=== PATIENT | female | born 1965 | race Caucasian/White ===

== ENCOUNTER → 2019-12-24 12:44 | Outpatient (BNVA) | payer MEDICAID, SELFPAY | PROVIDERS: Family Provider Physician Assistant Medical; PCP Family Medicine; Referring Provider Nurse Practitioner Family; Visit Provider Anesthesiology Pain Medicine | DX: M54.42 Lumbago with sciatica, left side (principal); M54.41 Lumbago with sciatica, right side; M54.9 Dorsalgia, unspecified; F17.210 Nicotine dependence, cigarettes, uncomplicated; Z79.891 Long term (current) use of opiate analgesic | CPT/HCPCS: 99204 ==

== ENCOUNTER → 2021-05-24 12:19 | Outpatient (BNVA) | payer MEDICAID, SELFPAY | PROVIDERS: Family Provider Physician Assistant Medical; PCP Family Medicine; Visit Provider Nurse Practitioner Family | DX: N39.3 Stress incontinence (female) (male) (principal); N39.0 Urinary tract infection, site not specified | CPT/HCPCS: 81003; 87086 ==

== ENCOUNTER 2021-11-03 13:26 | Outpatient (CLI) | payer MEDICAID, SELFPAY ==
--- NOTE | 2021-11-03 13:39 | MM_ITS ---
WS: [id number] BILATERAL 3D TOMOSYNTHESIS DIGITAL SCREENING MAMMOGRAM WITH CAD CLINICAL INFORMATION: SCREENING HISTORY: Screening mammogram. LEFT breast trauma with lump COMPARISON: August 16, 2020 TECHNIQUE: Bilateral CC and MLO. FINDINGS: The breast are composed of heterogeneously dense tissue, which can limit the detection of small under lying mass lesions. Punctate and lucent centered calcifications. Increasing asymmetric density upper outer RIGHT breast measuring 16 mm. Recommend further evaluation with ultrasound. MM/[place] [id number] IMPRESSION: BI-RADS: 0-Incomplete: Need additional imaging evaluation FOLLOW UP: Need Additional Imaging RECOMMEND ULTRASOUND UPPER-OUTER QUADRANT RIGHT BREAST
== END 2021-11-03 13:27 | disposition home or self-care (01) ==
PROVIDERS: PCP Family Medicine; Visit Provider Family Medicine
DX: Z12.31 Encounter for screening mammogram for malignant neoplasm of breast (principal)
CPT/HCPCS: 77063; 77067

== ENCOUNTER 2022-01-03 11:06 | Outpatient (CLI) | payer MEDICAID, SELFPAY ==
--- NOTE | 2022-01-03 11:16 | US_ITS ---
WS: [id number] ULTRASOUND BREAST RIGHT TECHNIQUE: Ultrasound right breast focused area of concern. CLINICAL INFORMATION: ABNORMAL MAMMO COMPARISON: Mammography 11/03/2021 and 08/16/2020 FINDINGS: Ultrasound upper outer quadrant RIGHT breast. Very dense underlying parenchymal tissue at the 10:00 p osition. This corresponds to the mammographic findings. Tiny incidental simple cyst at the 11:00 posi tion 2 cm the nipple measuring 2 mm. No suspicious cystic or solid lesions to target for biopsy. Roby mmend return to annual screening mammography. US/US breast RT limited* [id number] IMPRESSION: BI-RADS 2 benign FOLLOW UP: Recommend return to annual screening mammography.
== END 2022-01-03 11:07 | disposition home or self-care (01) ==
LOC: RAD 11:07
PROVIDERS: PCP Family Medicine; Visit Provider Family Medicine
DX: R92.8 Other abnormal and inconclusive findings on diagnostic imaging of breast (principal)
CPT/HCPCS: 76642

== ENCOUNTER → 2022-03-27 08:27 | Outpatient (BNVA) | payer MEDICAID, SELFPAY | PROVIDERS: PCP Family Medicine; Visit Provider Internal Medicine | DX: L40.9 Psoriasis, unspecified (principal); M25.50 Pain in unspecified joint; I10 Essential (primary) hypertension; Z11.59 Encounter for screening for other viral diseases; Z11.1 Encounter for screening for respiratory tuberculosis; R53.83 Other fatigue | CPT/HCPCS: 99204 ==

== ENCOUNTER 2022-04-05 12:52 | Outpatient (CLI) | payer MEDICAID, SELFPAY ==
--- NOTE | 2022-04-05 13:05 | XR_ITS ---
WS: [id number] EXAMINATION: XR knee LT 1-2V 99815 REASON FOR EXAM: I10 - Essential (primary) hypertension COMPARISON: None available. ORDER DATE: 04/05/2022 1:09 PM FINDINGS: There are calcifications in the medial and lateral menisci with medial and patellofemoral compartment narrowing. There is no sign of any acute fracture or dislocation. A small joint effusion cannot be e xcluded but there is no evidence of any large effusion XR/XR knee LT 1-2V 28988 IMPRESSION: MEDIAL AND PATELLOFEMORAL COMPARTMENT NARROWING WITH OSTEOARTHRITIC CHANGES. SL IGHT MENISCAL CALCIFICATION MAY BE CHRONIC DEGENERATIVE CHANGE OR CHONDROCALCIN OSIS.
--- NOTE | 2022-04-05 13:05 | XR_ITS ---
WS: [id number] EXAMINATION: XR knee RT 1-2V [id number] REASON FOR EXAM: I10 - Essential (primary) hypertension COMPARISON: None available. ORDER DATE: 04/05/2022 1:09 PM FINDINGS: There is no sign of any acute osseous or articular abnormality. There is minor narrowing of the later al compartment of the knee joint consistent with osteoarthritis. There are no specific soft tissue ab normalities. XR/XR knee RT 1-2V 42845 IMPRESSION: Minor osteoarthritis.
[2022-04-05 13:35] LABS: Basophils # 0.1 10^3/uL (0.0-0.1); Basophils % 1.6 %; Eosinophils # 0.3 10^3/uL (0.0-0.8); Eosinophils % 4.1 %; Hematocrit 42.8 % (37.0-47.0); Hemoglobin 14.3 g/dL (11.5-15.3); Lymphocytes # 2.5 10^3/uL (0.8-4.8); Lymphocytes % 32.6 %; Mean Corpuscular HGB Conc 33.4 g/dL (30.0-36.0); Mean Corpuscular Hemoglobin 31.1 pg (28.0-34.0); Mean Platelet Volume 9.4 fL (7.4-10.4); Monocytes # 0.8 10^3/uL (0.2-0.9); Monocytes % 10.1 %; Neutrophils # 3.98 10^3/uL (1.8-7.7); Neutrophils % 51.3 %; Nucleated Red Blood Cells % 0 %; Platelet Count 369 10^3/cmm (130-400); Red Cell Distribution Width 13.8 % (12.1-15.1); White Blood Count 7.7 10^3/uL (4.0-10.0)
[2022-04-05 13:48] LABS: Alanine Aminotransferase 12 U/L (0-33); Albumin Level 4.4 g/dL (3.5-5.2); Alkaline Phosphatase 143 U/L (35-105); Anion Gap 16.4 (5-19); Aspartate Amino Transferase 18 U/L (0-32); Blood Urea Nitrogen 12 mg/dL (6-20); Calcium 9.3 mg/dL (8.5-10.5); Carbon Dioxide 23 mmol/L (22-29); Chloride 98 mmol/L (98-107); Globulin 2.8 g/dL (1.3-4.6); Glomerular Filtration Rate 103.8 mL/min (90-130); Glucose 90 mg/dL (65-115); Osmolality Calculated 275 mOsm/kg (285-295); Potassium 4.4 mmol/L (3.5-5.1); Sodium 133 mmol/L (136-145); Total Bilirubin 0.4 mg/dL (0.15-1.2); Total Protein 7.2 g/dL (6.6-8.7)
[2022-04-05 14:15] LABS: Hepatitis B Core AB, Total Non-Reactive (Nonreactive); Hepatitis B Surface Antigen Non-Reactive (Nonreactive); Hepatitis C Virus Antibody Non-Reactive (Nonreactive)
[2022-04-07 11:55] LABS: Quantiferon Mitogen >10.00 IU/mL; Quantiferon Nil 0.02 IU/mL; Quantiferon Plus TB1 0.02 IU/mL; Quantiferon Plus TB2 0.02 IU/mL; Quantiferon TB Gold NEGATIVE (NEGATIVE)
== END 2022-04-05 12:53 | disposition home or self-care (01) ==
LOC: LAB 12:54
PROVIDERS: PCP Family Medicine; Visit Provider Internal Medicine
DX: I10 Essential (primary) hypertension (principal); M25.562 Pain in left knee; M25.561 Pain in right knee; Z79.899 Other long term (current) drug therapy
CPT/HCPCS: 36415; 73560; 80053; 85025; 86480; 86704; 86803; 87340

== ENCOUNTER → 2022-06-06 14:53 | Outpatient (BNVA) | payer MEDICAID, SELFPAY | PROVIDERS: PCP Family Medicine; Visit Provider Internal Medicine | DX: L40.9 Psoriasis, unspecified (principal); M25.50 Pain in unspecified joint; I10 Essential (primary) hypertension; F17.210 Nicotine dependence, cigarettes, uncomplicated; Z85.828 Personal history of other malignant neoplasm of skin | CPT/HCPCS: 99213 ==

== ENCOUNTER → 2022-08-29 13:29 | Outpatient (BNVA) | payer MEDICAID, SELFPAY | PROVIDERS: PCP Family Medicine; Visit Provider Internal Medicine | DX: L40.9 Psoriasis, unspecified (principal); M25.50 Pain in unspecified joint; I10 Essential (primary) hypertension | CPT/HCPCS: 99214 ==

== ENCOUNTER 2022-09-04 10:49 | Outpatient (CLI) | payer MEDICAID, SELFPAY ==
[2022-09-04 11:14] LABS: Basophils # 0.1 10^3/uL (0.0-0.1); Basophils % 1.3 %; Eosinophils # 0.4 10^3/uL (0.0-0.8); Eosinophils % 4.1 %; Hematocrit 42.7 % (37.0-47.0); Lymphocytes # 2.6 10^3/uL (0.8-4.8); Lymphocytes % 26.3 %; Mean Corpuscular HGB Conc 32.8 g/dL (30.0-36.0); Mean Corpuscular Hemoglobin 30.9 pg (28.0-34.0); Mean Corpuscular Volume 94.3 fl (81-99); Mean Platelet Volume 9.3 fL (7.4-10.4); Monocytes # 0.7 10^3/uL (0.2-0.9); Monocytes % 7.5 %; Neutrophils # 5.82 10^3/uL (1.8-7.7); Neutrophils % 60.2 %; Nucleated Red Blood Cells % 0 %; Platelet Count 390 10^3/cmm (130-400); Red Blood Count 4.53 10^6/uL (4.1-5.3); White Blood Count 9.7 10^3/uL (4.0-10.0)
[2022-09-04 11:21] LABS: Erythrocyte Sedimentation Rate 20 mm/hr (0-15)
[2022-09-04 11:29] LABS: Alanine Aminotransferase 16 U/L (0-33); Albumin Level 4.1 g/dL (3.5-5.2); Alkaline Phosphatase 131 U/L (35-105); Anion Gap 14.2 (5-19); Aspartate Amino Transferase 20 U/L (0-32); Blood Urea Nitrogen 9 mg/dL (6-20); C Reactive Protein 5.5 mg/L (0.0-4.9); Calcium 8.9 mg/dL (8.5-10.5); Carbon Dioxide 28 mmol/L (22-29); Chloride 98 mmol/L (98-107); Globulin 2.7 g/dL (1.3-4.6); Glomerular Filtration Rate 86.9 mL/min (90-130); Glucose 88 mg/dL (65-115); Osmolality Calculated 280 mOsm/kg (285-295); Potassium 4.2 mmol/L (3.5-5.1); Sodium 136 mmol/L (136-145); Total Bilirubin 0.3 mg/dL (0.15-1.2); Total Protein 6.8 g/dL (6.6-8.7)
== END 2022-09-04 10:50 | disposition home or self-care (01) ==
PROVIDERS: PCP Family Medicine; Visit Provider Internal Medicine
DX: L40.9 Psoriasis, unspecified (principal)
CPT/HCPCS: 36415; 80053; 85025; 85651; 86140

== ENCOUNTER → 2022-09-05 12:58 | Outpatient (BNVA) | payer MEDICAID, SELFPAY | PROVIDERS: PCP Family Medicine; Visit Provider Internal Medicine | DX: Z71.89 Other specified counseling; C44.729 Squamous cell carcinoma of skin of left lower limb, including hip; L30.9 Dermatitis, unspecified; R23.4 Changes in skin texture; L57.8 Other skin changes due to chronic exposure to nonionizing radiation; L81.4 Other melanin hyperpigmentation; L85.3 Xerosis cutis; D22.5 Melanocytic nevi of trunk; L40.0 Psoriasis vulgaris; L56.8 Other specified acute skin changes due to ultraviolet radiation; H16.229 Keratoconjunctivitis sicca, not specified as Sjogren's, unspecified eye; L59.0 Erythema ab igne [dermatitis ab igne]; M25.50 Pain in unspecified joint | CPT/HCPCS: 11103; 11104; 20605; 99213; 99214; J1030 ==

== ENCOUNTER → 2022-10-02 07:55 | Outpatient (BNVA) | payer MEDICAID, SELFPAY | PROVIDERS: PCP Family Medicine; Visit Provider Dermatology | DX: C44.729 Squamous cell carcinoma of skin of left lower limb, including hip (principal) | CPT/HCPCS: 13121; 17313; 17314 ==

== ENCOUNTER → 2022-10-17 10:44 | Outpatient (BNVA) | payer MEDICAID, SELFPAY | PROVIDERS: PCP Family Medicine; Visit Provider Dermatology | DX: L57.0 Actinic keratosis (principal); L57.8 Other skin changes due to chronic exposure to nonionizing radiation; L40.0 Psoriasis vulgaris; L40.59 Other psoriatic arthropathy | CPT/HCPCS: 17004; 99214 ==

== ENCOUNTER → 2022-12-13 09:17 | Outpatient (BNVA) | payer MEDICAID, SELFPAY | PROVIDERS: PCP Family Medicine; Visit Provider Dermatology | DX: L57.0 Actinic keratosis (principal) | CPT/HCPCS: 96567 ==

== ENCOUNTER 2022-12-28 12:28 | Outpatient (CLI) | payer MEDICAID, SELFPAY ==
--- NOTE | 2022-12-28 12:34 | USCV_ITS ---
No Emma Ann Age: 57 Gender: F : 1965 Exam Date: 12/28/2022 12:50 Ordering Phys: Dani Garcia XX Technologist: Michael Rubio Exam Location: [facility] [place] Indication: sob BP: 166 / 96 HR: 68 Rhythm: Sinus Technical Quality: Adequate MEASUREMENTS (Male / Female) Normal Values 2D ECHO LVOT Diameter 2.1 cm LV Ejection Fraction MOD 2C 59.8 % LV Ejection Fraction 2C AL 60.7 % LA Diameter 3.2 cm LA Width 3.1 cm LA Height 4.0 cm RA Width 3.1 cm RA Height 3.5 cm Aorta at Sinotubular Diameter 2.1 cm IVC Diameter 1.3 cm M-MODE Aortic Annulus Diameter 2.3 cm LA Ao Ratio MM 1.3 MV E Point Septal Separation 0.6 cm DOPPLER AV Peak Velocity 153.3 cm/s LVOT Peak Velocity 96.0 cm/s AV Area Cont Eq vti 2.2 cm squared AV Area Cont Eq pk 2.1 cm squared MV Peak Velocity 105.0 cm/s MV Area PHT 3.9 cm squared Mitral E to A Ratio 1.3 MV E' Velocity 56.0 cm/s Mitral E to MV E' Ratio 8.9 Mitral E to LV E' Lateral Ratio 7.2 Mitral E to LV E' Septal Ratio 11.8 TR Peak Velocity 255.2 cm/s TR Peak Gradient 26.1 mmHg TR Mean Velocity 207.5 cm/s TR Mean Gradient 18.1 mmHg TR Velocity Time Integral 68.6 cm Right Atrial Pressure 3.0 mmHg Pulmonary Artery Systolic Pressu 29.1 mmHg PV Peak Velocity 138.0 cm/s RV Acceleration Time 0.1 s RV Ejection Time 0.2 s RV AcT/ET 0.5 FINDINGS Left Ventricle Left ventricle is normal in size. LV systolic function is normal with EF 55 to 60%. No regional wall motion abnormalities are seen. Right Ventricle Normal in size and function Right Atrium Normal in size Left Atrium Normal in size Mitral Valve Structurally normal mitral valve. Trace mitral regurgitation Aortic Valve Structurally normal aortic valve. No significant stenosis or regurgitation is seen. Tricuspid Valve Mild tricuspid regurgitation. Pulmonary artery systolic pressure is normal. Pulmonic Valve Not well visualized Pericardium Normal Aorta Normal in size IVC Appears to be normal CONCLUSIONS LV systolic function is normal with EF 55 to 60%. Trace mitral regurgitation Mild tricuspid regurgitation. No comparison studies are available. Ray Ramirez MD (Electronically Signed) Final Date: 14 January 2023 12:42 S
== END 2022-12-28 12:29 | disposition home or self-care (01) ==
LOC: RAD 12:29
PROVIDERS: PCP Family Medicine; Visit Provider Family Medicine
DX: I08.1 Rheumatic disorders of both mitral and tricuspid valves (principal); I50.9 Heart failure, unspecified
CPT/HCPCS: 93306

== ENCOUNTER → 2023-01-07 13:40 | Outpatient (BNVA) | payer MEDICAID, SELFPAY | PROVIDERS: PCP Family Medicine; Visit Provider Internal Medicine | DX: L40.9 Psoriasis, unspecified (principal); M25.50 Pain in unspecified joint | CPT/HCPCS: 99213 ==

== ENCOUNTER 2023-01-09 13:16 | Outpatient (CLI) | payer MEDICAID, SELFPAY ==
--- NOTE | 2023-01-09 13:23 | MM_ITS ---
WS: [id number] BILATERAL 3D TOMOSYNTHESIS DIGITAL SCREENING MAMMOGRAPHY WITH CAD CLINICAL INFORMATION: SCREENING HISTORY: Screening mammogram. No current complaints. COMPARISON: 11/03/2021 TECHNIQUE: Bilateral CC and MLO views. FINDINGS: The breasts are composed of heterogeneous fibroglandular density tissue, which can limit the detectio n of small underlying mass lesions. No suspicious mass, asymmetry, calcifications, or architectural d istortion. No evidence of malignancy. Punctate and lucent centered calcifications or dystrophic calci fications LEFT breast are stable. Stable dense breast tissue upper outer RIGHT breast. IMPRESSION: MM/[place] [id number] BI-RADS: 2-Benign FOLLOW UP: 1 Year Follow-up Recommend return to annual screening mammography.
== END 2023-01-09 13:17 | disposition home or self-care (01) ==
LOC: MOBLMAM 13:22
PROVIDERS: PCP Family Medicine; Visit Provider Family Medicine
DX: Z12.31 Encounter for screening mammogram for malignant neoplasm of breast (principal)
CPT/HCPCS: 77063; 77067

== ENCOUNTER → 2023-05-08 09:30 | Outpatient (BNVA) | payer MEDICAID, SELFPAY | PROVIDERS: PCP Family Medicine; Visit Provider Internal Medicine | DX: L40.9 Psoriasis, unspecified (principal); M25.50 Pain in unspecified joint | CPT/HCPCS: 99214 ==

== ENCOUNTER 2024-02-27 11:19 | Outpatient (CLI) | payer MEDICAID, SELFPAY ==
--- NOTE | 2024-02-27 11:20 | MM_ITS ---
WS: [id number] Bilateral screening 3D tomosynthesis digital mammogram, 02/27/2024 11:26 AM Clinical Data: SCREENING Comparison: 01/09/2023, 11/03/2021, 08/16/2020, 09/02/2015, 02/28/2011. Findings: No spiculated masses or clustered calcifications are seen. There are no secondary signs of carcinoma . MM/MM scr BI tomosynthesis [id number] Impression: Negative bilateral mammogram unchanged. Recommend annual screening mammograms. BIRADS: 1 - Negative FOLLOW UP: 1 Year Follow-up DENSITY: The breasts are heterogeneously dense, which may obscure small masses. The CAD land checker was used
== END 2024-02-27 11:20 | disposition home or self-care (01) ==
PROVIDERS: PCP Family Medicine; Visit Provider Family Medicine
DX: Z12.31 Encounter for screening mammogram for malignant neoplasm of breast (principal)
CPT/HCPCS: 77063; 77067

== ENCOUNTER → 2024-08-13 13:53 | Outpatient (BNVA) | payer OTHER, SELFPAY | PROVIDERS: PCP Family Medicine; Visit Provider Psychiatry & Neurology Psychiatry | DX: Z79.899 Other long term (current) drug therapy (principal) | CPT/HCPCS: 80061; 83036 ==

== ENCOUNTER → 2024-10-26 10:38 | Outpatient (BNVA) | payer MEDICAID, SELFPAY ==
[2024-08-24 12:00] VITALS: BP 153/90; BMI 27.6
== END ==
PROVIDERS: PCP Family Medicine; Visit Provider Nurse Practitioner Family
DX: L40.4 Guttate psoriasis (principal); L59.0 Erythema ab igne [dermatitis ab igne]; Z08 Encounter for follow-up examination after completed treatment for malignant neoplasm; Z85.828 Personal history of other malignant neoplasm of skin; L57.0 Actinic keratosis
CPT/HCPCS: 17000; 99214

== ENCOUNTER → 2025-02-15 09:16 | Outpatient (BNVA) | payer MEDICAID, SELFPAY ==
[2024-08-24 12:00] VITALS: BP 153/90; BMI 27.6
== END ==
PROVIDERS: PCP Family Medicine; Visit Provider Orthopaedic Surgery
DX: M25.561 Pain in right knee (principal); M17.11 Unilateral primary osteoarthritis, right knee; M25.761 Osteophyte, right knee
CPT/HCPCS: 36415; 73560; 73565; 80053; 81001; 85025; 99204

== ENCOUNTER 2025-03-03 08:40 | Observation (INO) | payer MEDICAID, SELFPAY ==
[2024-08-24 12:00] VITALS: BP 153/90; BMI 27.6
[2025-03-03] VITALS (28 sets, daily range): BP systolic 113–206; BP diastolic 69–117; PULSE 85–111; RESP 16–18; TEMP 36.3–38.3; O2SAT 91–98; BMI 30.9; BMI 27.8
--- NOTE | 2025-03-03 06:13 | ANES.PREANE2 ---
Pre-Anesthetic Assessment Height/Weight: Height 5 ft 4 in Operation Date: 03/03/25 07:00 Proposed Procedures p RIGHT Total Knee Arthroplasty(Right) - Cornelius Prabhakar MD Anesthetic Plan ASA status: 3 Anesthesia: General Other: No prior issues with anesthesia NPO since yesterday evening History of hypertension on lisinopril. Patient states that they have also given her hydralazine recently within the last week. Preop BP initially 206 systolic, repeat 178/117. Patient states that she is super nervous. Will give her 10 of hydralazine and recheck Patient also admits to hyperthyroidism that has not been treated to this point. Has an appointment with endocrinology. Patient pulled up labs on her phone that were recently drawn in January. TSH of 0.03. Free T4 of 1.9 which is borderline elevated. Patient currently is not tachycardic. No CP GERD, controlled with omeprazole Current everyday smoker Labs 1020/25 reviewed and acceptable for procedure today Patient has a full back rash that she sees dermatology for. States that this is from a heating pad. Orthopedic surgeon has evaluated this and states he would like to proceed with surgery Echo from 2022 showing EF of 55 to 60% with no RWMA Plan for general anesthesia Medications/Allergies Home Medications ?Medication ?Instructions ?Recorded ?Confirmed ?Last Taken ?Type albuterol sulfate 90 mcg/actuation 2 puff inhalation BID 12/24/19 03/03/25 03/03/25 History aerosol inhaler (ProAir HFA) budesonide-formoterol HFA 160 2 puff inhalation BID 12/24/19 03/03/25 03/03/25 History mcg-4.5 mcg/actuation aerosol inhaler (Symbicort) furosemide 40 mg tablet 40 mg PO DAILY PRN Edema 12/24/19 03/02/25 03/01/25 History gabapentin 400 mg capsule 800 mg PO TID 12/24/19 03/03/25 03/03/25 History methocarbamol 750 mg tablet 750 mg PO TID PRN muscle relaxer 12/24/19 03/02/25 03/02/25 History tiotropium bromide 18 mcg capsule 1 cap inhalation DAILY 12/24/19 03/03/25 03/03/25 History with inhalation device (Spiriva with HandiHaler) lisinopril 10 mg tablet 20 mg PO BID 0203/02/25 03/02/25 History prednisone 5 mg tablet 5 mg PO DAILY #30 tabs 05/08/23 03/02/25 02/23/25 Rx omeprazole 20 mg capsule,delayed 20 mg PO DAILY 08/13/24 03/02/25 03/02/25 History release tramadol 50 mg tablet 50 mg PO TID PRN Pain, Mild 02/15/25 03/02/25 Unknown History hydralazine 10 mg tablet 10 mg PO TID 03/03/25 03/03/25 03/02/25 History Allergies Allergy/AdvReac Type Severity Reaction Status Date / Time atenolol Allergy ADR/ALGY-Pa Verified 03/03/25 05:55 lpitations naproxen (From Aleve) Allergy ALGY-Difficulty Verified 03/03/25 05:55 Breathing ofloxacin (From Floxin) Allergy Unknown Verified 03/03/25 05:55 PFS Anesthesia Medical History (Updated 02/15/25 @ 16:12 by ARIE Davis) Psychiatric care Hypertension Arthralgia Psoriasis Stress incontinence Mixed stress and urge urinary incontinence Recurrent UTI Family history of melanoma 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 Pain management contract signed High cholesterol HTN (hypertension) Diverticulitis Prolapsed bladder Surgical History History of prolapse of bladder History of bladder repair surgery History of back surgery Hx of colonoscopy Hx of hysterectomy History of knee surgery Family History Father Diabetes Mother Arthritis Social History Smoking and tobacco/nicotine status: current every day tobacco/nicotine user (vape) e-cigarettes E-Cigarette Details: e-cigarette and with nicotine E-cig/vape details: pod takes 4-5 days to go through Quit status (tobacco/nicotine): not considering quitting Second hand smoke exposure: No Alcohol intake: former Former alcohol use details: quit several years ago Substance/Drug Use: never Adopted: No Caregiver/support person: No Lives independently: Yes Household members: spouse Housing: Manufactured/Mobile home Marital status: Marital status details: ex still lives with her Number of children: 2 Number of grandchildren: 0 Highest education level completed: 11th Grade service: No Current occupational status: disabled Pets and animals: Yes Pets & animals: cat(s) and dog(s) Leisure activites: music and other Leisure activities details: playing with her dog Sexually active: No Do you think of yourself as: Straight/Heterosexual Current gender identity: Female Marge/Mandaeism: Hindu Special marge needs: No Agree to transfusion: Yes Female Reproductive History Para: 2 Spontaneous abortions: Yes (X 1) Data Anesthesia Cardiac Studies: Echocardiogram 12/28/22
--- NOTE | 2025-03-03 06:40 | W.PM.OPSUD ---
Surgery/Procedure H&P Update DATE OF PROCEDURE: March 03, 2025 DATE H&P PERFORMED: 02/26/25 H&P UPDATE INFORMATION: I have reviewed H&P completed within last 30 days, I have examined patient prior to procedure and No changes to prior documentation PREOP DIAGNOSIS: End-stage degenerative joint disease right knee PLANNED PROCEDURE: Operation Date: 03/03/25 07:00 Proposed Procedures p RIGHT Total Knee Arthroplasty(Right) - Cornelius Prabhakar MD
[2025-03-03] MEDS: hyDRALAzine 20 mg/mL INJ 1 mL 10 MG IVP (06:48)
--- NOTE | 2025-03-03 06:55 | SUR.PREOP ---
0635 patient sat up on side of bed and large area of redness to lower back, Dr. 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 Prabhakar here to look at redness to lower back,asked how long has this redness been on back,pt and spouse stated that it has been there for years,Dr. Prabhakar states that he can proceed with surgery
[2025-03-03] MEDS: ceFAZolin 2,000 mg SDV 2000 MG IVP ×3 (07:00→23:04)
[2025-03-03] MEDS: tranexamic acid 1,000 mg/10mL SDV 1000 MG IV (07:21)
--- NOTE | 2025-03-03 08:10 | PC.NURSE ---
Family Update Patient's mother called and notified by Dr. Albarado that procedure is now open and not laparoscopic. Afsaneh, patient's mother, had no questions.
--- NOTE | 2025-03-03 08:24 | XR_ITS ---
WS: [id number] Right knee, AP and lateral views, 03/03/2025 Clinical Data: Right total knee arthroplasty Comparison: Right knee, AP both knees, 02/15/2025 Findings: The arthroplasty components are in good position. Postoperative air is in the joint space. There are anterior surgical gladys. XR/XR knee RT 1-2V [id number] Impression: Right knee arthroplasty.
--- NOTE | 2025-03-03 08:32 | P.OP_ITS ---
Operative Report Date of procedure: March 03, 2025 Surgeon: Cornelius Prabhakar MD Procedure: Preoperative diagnosis: End-stage degenerative joint disease right knee Postoperative diagnosis: Same Procedure: Right total knee arthroplasty Surgeon: Cornelius Prabhakar MD Cosmetic Maker: KRISTAL Estes's assistance was necessary for positioning the patient, assistance during the procedure, wound closure, dressing placement, Anesthesia: General Tourniquet time: 29 minutes at 250 mmHg EBL: 30 cc Indications: Emma is a 59-year-old white female who was seen in the orthopedic clinics for debilitating bilateral knee pain. She has x-ray results demonstrating osteoarthritic changes of both knees with left looking worse than the right however she has more pain in right knee at this time. After failing all conservative measures she was offered a total knee arthroplasty at this time. All risk benefits treatment alternatives were discussed with her and she is agreeable to this at this time. Procedure: After obtaining her consent patient taken the operating room placed on upper table supine position general anesthetic administered. Once Konesky was achieved pneumatic cuffs placed on proximal right thigh and right leg was prepped and draped usual fashion. After surgical timeout and gravity exsanguination pneumatic cuff is inflated 250 mm record. With the foot in a foot holding device knee was flexed at 90 degrees and held it there. Longitudinal incision made from superior pole of patella down to the tibial tubercle. Sharp dissection taken on down to subcutaneous tissues electrocautery used for hemostasis. Knee was opened up along medial parapatellar incision line exposing the knee. Soft tissue was sharply debrided including anterior horn of the medial meniscus. ACL and fat pad. Capsule was stripped from the medial portion of the tibia for better exposure. At this point legs put out the full extension and the patella was inverted 180 degrees. Soft tissue debrided around his periphery with electrocautery. This is then reamed down to about 14 mm thickness with a patellar reamer. Patella was then placed lateral gutter and the knee was flexed back to 90 degrees. Appropriate retractors placed including PCL retractor expose the proximal tibia. Tibial cutting guide was positioned with an external alignment. 2 mm cut was measured off the most affected side that being a lateral. Once is in place with appropriate posterior slope small osteotome was driven anterior to the PCL to protect during cutting. Sagittal saw was then used to make tibial cut without any problem. Box cut was made around the insertion of the PCL a small osteotome. Tibial cut was then removed piecemeal. At this point PCL retractor was removed and drill holes placed in the distal femur just anterior to the intercondylar notch. Guide nathan is placed of the interventionally canal and distal cutting block was positioned on the femur and pinned in place. Distal cuts were made with +2 cut due to the amount of wear on the lateral femoral condyle. Distal femur was sized to a size 5 distal cutting block, drill holes were placed through the sizer. Distal cutting block was placed. Anterior posterior and chamfer cuts were made without any difficulties. PCL retractor was placed back into the knee and soft tissues from the joint line were sharply removed including menisci and remnants around the ACL. Tibial tray was sized to size D tibial tray and in position with an external guide nathan. This is pinned in place. 10 mm trial tibial spacer was placed on this. Sized 5 femoral trial was then impacted on the distal femur. Knee was put through range of motion have good stability and good range of motion. Legs put out the full extension patella was everted again. It was sized to size 32 mm patellar button. Appropriate drill holes were placed. Trial component was placed on the patella and this was reduced into the joint. Adhesions along the lateral side of the patella and retinaculum were debrided with electrocautery to allow for more free motion. Knee had full range of motion with good tracking patella. At this point drill holes were placed through the distal femoral trial component for future use for post of the permanent component. All trial components were removed and the knee was washed closed nonsterile occasion. Tray was still in place on the tibia and appropriate drill and punch was used to prepare for the post of the permanent tray. Subsequently permanent size placed and impacted. Size 5 femoral component was placed impacted. Trial size 10 tibial spacer was placed and knee was put the range of motion found to be stable in all positions with good range of motion. Subsequently permanent size 10 tibial spacer was placed and locked in place. Subsequently permanent patella was then placed on the posterior patella and impacted with patellar clamp. Once all parts were ended medicos deflated after 29 minutes total tourniquet time. Knee again was washed with service technician copier ious amounts pulse lavage irrigation. Electrocautery was used for hemostasis. Knee was placed on a knee bump for slight flexion. Extensor mechanism repaired with #1 Vicryl fgaued-ak-dlyaw sutures. Subcutaneous was reapproximated 0 Vicryl interrupted sutures. Skin was closed with skin gladys. Wounds are cleaned and dried dressed with Xeroform gauze to gauze dressing Silverlon dressing and Abdifatah wrap for compression. Patient was awakened transferred to cover room in stable condition. Patient then had a adductor canal block done in the recovery room postoperatively.
[2025-03-03] MEDS: fentaNYL 50 mcg/mL INJ 2mL IVP (08:40)
--- NOTE | 2025-03-03 09:00 | ANES.PROC ---
Anesthesia Procedures Procedure/Date: 03/03/25 Right adductor canal block and right iPAck block for postoperative pain control Nerve Block ^: Nerve Block 1: Main Anesthesia: general anesthesia Time Out Performed: Yes Consent: requested by attending/covering physician and from patient Laterality: Right Nerve block location: adductor canal Anesthesia monitors applied: pulse oximetry, EKG, BP cuff and oxygen Nerve block position: supine Anesthetic Used: ropivicaine 0.5% Amount of anesthesia used (mL): 20 Ultrasound used to: recognize landmarks Nerve Stimulator Used?: Yes Interscalene/Femoral BLK: other needle (pjunk 4inch) Injection: neg aspiration of heme Patient Tolerated Procedure: well Complications: none Nerve Block 2: Main Anesthesia: general anesthesia Time Out Performed: Yes Consent: requested by attending/covering physician and from patient Laterality: Right Nerve block location: other (IPACK) Anesthesia monitors applied: pulse oximetry, EKG, BP cuff and oxygen Nerve block position: supine Anesthetic Used: other (ropivacaine 0.2%) Amount of anesthesia used (mL): 20 Ultrasound used to: recognize landmarks Nerve Stimulator Used?: Yes Interscalene/Femoral BLK: other needle (pjunk 4inch) Injection: neg aspiration of heme Patient Tolerated Procedure: well Complications: none
--- NOTE | 2025-03-03 09:15 | ANE.PACU2 ---
Inpatient post-anesthesia follow up: Airway intact: Yes Vital signs: Temperature 97.8 F Pulse Rate 105 Respiratory Rate 18 Blood Pressure 135/69 Pulse Oximetry 94 Oxygen Delivery Me thod Room Air Oxygen Flow Rate Fraction of Inspir ed Oxygen 21 Hydration adequate: Yes Nausea and vomiting: No Pain level: 1 Mental status: Baseline
[2025-03-03] MEDS: HYDROcodone-acetaminophen 5-325 mg Tablet 1 TAB PO ×3 (09:56→20:20)
[2025-03-03] MEDS: morphine 4 mg/mL SDV 1 mL IVP ×2 (13:23→21:13)
--- NOTE | 2025-03-03 13:36 | PC.NURSE ---
pt took home medication-hydralazine 10mg, educ pt that she needed to not take home medication, risks of taking and benefits of us giving her dose. pt was ordered to have hydralazine 10mg at 1300. she took med at approx 1315, nurse went to give at 1323. dr melendez notified and aware.
[2025-03-03] MEDS: mupirocin oint 22 gm 1 APPLIC NASAL (16:03)
[2025-03-03] MEDS: sennosides-docusate Tablet 2 TAB PO (16:03)
[2025-03-03] MEDS: APIXABAN 2.5 MG TABLET PO (20:21)
[2025-03-04] VITALS (7 sets, daily range): BP systolic 130–147; BP diastolic 72–74; PULSE 87–96; RESP 15–20; TEMP 37.2–38.1; O2SAT 91–95
[2025-03-04] MEDS: HYDROcodone-acetaminophen 5-325 mg Tablet 1 TAB PO ×4 (01:04→13:39)
[2025-03-04] MEDS: morphine 4 mg/mL SDV 1 mL IVP (03:09)
[2025-03-04] MEDS: multivitamin therapeutic Tablet 1 TAB PO (06:13)
[2025-03-04] MEDS: mupirocin oint 22 gm 1 APPLIC NASAL (06:15)
[2025-03-04] MEDS: ceFAZolin 2,000 mg SDV 2000 MG IVP (07:47)
[2025-03-04] MEDS: APIXABAN 2.5 MG TABLET PO (09:19)
--- NOTE | 2025-03-04 15:25 | PM.DCS ---
Discharge Providers Date of Admission: 03/03/25 08:40 Date of Discharge: March 04, 2025 Attending Provider at Admission: Cornelius Prabhakar MD Attending Provider at Discharge: Cornelius Prabhakar MD Primary Care Provider: Dani Garcia Reason for Visit Reason for Visit: M25.561 Brief History: Emam is a 59-year-old white female is followed in the orthopedic clinic for debilitating right knee pain. She failed all conservative measures and was offered a total knee arthroplasty. Hospital Course Hospital Course Patient was admitted on 03/03/2025 and had the above-stated procedure. She tolerated a right total knee arthroplasty well. She was held overnight for observation. Over the course the evening she had elevated temperatures as well as today though most of this was pulmonary toilet related. She was sleeping quite a bit not doing her incentive spirometry or deep breathing. Once this was addressed and the patient was doing better temperatures went down. Therapy is indicated that she is doing quite well. Patient wants to go home at this time and therefore we will go ahead and discharge her with follow-up in 3 weeks Physical Exam Narrative: Patient is demonstrating nearly full extension actively with some assistance with her hands. She is demonstrating nearly 90 degrees of flexion already. Dressings are clear and dry. Urinary Catheter Management: Renner: Cath Placed During This Visit: yes, but has since been removed by the nurse Reason for Continuing Indwelling Catheter: Perioperative Use in Selected Surgeries Urinary Catheter Date of Insertion: 03/03/25 Urinary Catheter Time of Insertion: 07:11 Date Urinary Catheter Removed: 03/04/25 Time Urinary Catheter Discontinued: 06:30 Discharge Data Studies Completed and Pending Completed Studies During Hospitalization Category Date Time Status XR knee RT 1-2V [id number] Routine Exams 03/03/25 08:24 Completed Pending at discharge Category Date Time Status Basic Metabolic Panel AM LABS Lab 03/04/25 04:00 Uncollected Complete Blood Count w/Auto AM LABS Lab 03/04/25 04:00 Uncollected Complete Blood Count w/Auto AM LABS Lab 03/05/25 04:00 Uncollected Complete Blood Count w/Auto AM LABS Lab 03/06/25 04:00 Uncollected Radiology Impressions Knee X-Ray 03/03/25 08:24 Impression: Right knee arthroplasty. Vitals Last Vital Signs Temp 100.6 F H 03/04/25 11:00 Pulse 87 03/04/25 12:00 Resp 20 H 11/06/25 12:00 BP 147/73 03/04/25 11:00 Pulse Ox 94 03/04/25 12:00 O2 Del Method Room Air 03/04/25 15:01 FiO2 21 03/03/25 11:24 Discharge Plan Discharge Patient Disposition: Home Condition: Stable Prescriptions: New hydrocodone-acetaminophen 5-325 mg tablet 1 tab PO Q6H PRN (Reason: pain) Qty: 30 0RF Continued gabapentin 400 mg capsule 800 mg PO TID methocarbamol 750 mg tablet 750 mg PO TID PRN (Reason: muscle relaxer) albuterol sulfate [ProAir HFA] 90 mcg/actuation HFA aerosol inhaler 2 puff INHALATION BID Spiriva with HandiHaler 18 mcg capsule, w/inhalation device 1 cap INHALATION DAILY Rx Instructions: puncture 1 cap using device; one dose = 2 inhalations budesonide-formoterol [Symbicort] 160-4.5 mcg/actuation HFA aerosol inhaler 2 puff INHALATION BID furosemide 40 mg tablet 40 mg PO DAILY PRN (Reason: Edema) lisinopril 10 mg tablet 20 mg PO BID prednisone 5 mg tablet 5 mg PO DAILY Qty: 30 1RF omeprazole 20 mg capsule,delayed release(DR/EC) 20 mg PO DAILY tramadol 50 mg tablet 50 mg PO TID PRN (Reason: Pain, Mild) hydralazine 10 mg Tablet 10 mg PO TID Discharge Order = DC NOW: Discharge Order (Routine); Ordered 03/04/25 Ordered By: Cornelius Prabhakar Referrals: Cornelius Prabhakar MD [Physician, Orthopedics] - 03/23/25 8:15 am Discharge Diet: Advance as tolerated Discharge Activity: Increase activity as tolerated Patient Instructions: Hydrocodone/Acetaminophen (By mouth), Acute Wound Care (DC), Total Knee Replacement (DC), Opioid Safety, Post Anesthesia Care, Patient Portal & [facility] Instructions Activity Restrictions/Additional Instructions: May remove Abdifatah wrap in 3 to 4 days Leave the dressing on the wound until follow-up Ice and elevate frequently Work on motion and ambulation at home 1 full aspirin per day Discharge Attestations Time Spent in Discharge Care*: less than 30 min Quality Metrics Clinical Quality Measures [ No reported AMI, CVA or VTE this stay] Coding Level of Care Code Acute Code for Chg Fwd
== END 2025-03-04 15:58 | disposition home or self-care (01) ==
LOC: MEDSURG 08:40
PROVIDERS: Admitting Provider Orthopaedic Surgery; PCP Family Medicine; Visit Provider Orthopaedic Surgery
PROC: (CPT 27447; principal; 2025-03-03 07:00)
DX: M17.11 Unilateral primary osteoarthritis, right knee (principal); K21.9 Gastro-esophageal reflux disease without esophagitis; Z79.891 Long term (current) use of opiate analgesic; I10 Essential (primary) hypertension; F17.290 Nicotine dependence, other tobacco product, uncomplicated
CPT/HCPCS: 64447; 27447; 51702; 73560; 94640; 97116; 97161; 97165; 97530; A4216; C1722; C1776; G0378; J0360; J0690; J1100; J1171; J2250; J2270; J2371; J2405; J2704; J2710; J3010; J3490; J3535; J7030; J7512; J7626; J9999

== ENCOUNTER → 2025-03-23 08:06 | Outpatient (BNVA) | payer MEDICAID, SELFPAY ==
[2024-08-24 12:00] VITALS: BP 153/90; BMI 27.6
== END ==
PROVIDERS: PCP Family Medicine; Visit Provider Orthopaedic Surgery
DX: Z96.651 Presence of right artificial knee joint (principal)
CPT/HCPCS: 73560; 73565; 99024

== ENCOUNTER 2025-03-31 16:14 | Outpatient (CLI) | payer MEDICAID, SELFPAY ==
[2024-08-24 12:00] VITALS: BP 153/90; BMI 27.6
--- NOTE | 2025-03-31 16:35 | USR_ITS ---
PROCEDURE INFORMATION: Exam: US Duplex Right Lower Extremity Veins, Limited Exam date and time: 03/31/2025 4:39 PM Age: 59 years old Clinical indication: Swelling (edema) of limb; Lower extremity, right; Prior surgery; Surgery date: 1-6 months; Surgery type: RT knee replacement; Additional info: RT leg swelling TECHNIQUE: Imaging protocol: Real-time duplex ultrasound of the right extremity with 2-D alcantar scale, color Doppler flow and spectral waveform analysis including responses to compression and other maneuvers (when performed) with image documentation. Limited exam was focused on the right lower extremity veins. COMPARISON: MR knee RT wo con* [id number] 01/06/2025 3:16 PM FINDINGS: Right deep veins: Unremarkable. The common femoral, femoral, proximal profunda femoral and popliteal veins are patent without thrombus. Normal Doppler waveforms. Normal compressibility and/or augmentation response. Superficial veins: Greater saphenous vein at the saphenofemoral junction is patent without thrombus. Soft tissues: Unremarkable. US/[place] [id number] IMPRESSION: No evidence of deep vein thrombosis in the right lower extremity.
== END 2025-03-31 16:15 | disposition home or self-care (01) ==
LOC: RAD 16:18
PROVIDERS: PCP Family Medicine
DX: M79.89 Other specified soft tissue disorders (principal)
CPT/HCPCS: 93971